=== PATIENT | female | born 1960 | race Caucasian/White ===

== ENCOUNTER 2020-07-08 16:14 | Emergency (ER) | payer MEDICAID, OTHER ==
[~2020-07-08] VITALS: Ht 160 cm; Wt 59.0 kg
[~2020-07-08 16:14] MED LIST: AMIT25TA9 PO; ATEN100T PO; FLUT16SP15 BOTHNSTRLS; OMEP20CA14 PO; PRAV80TA21 PO; SITA1TAB4 PO
[2020-07-08] MEDS ORDERED: ALBUTEROL (0.083%) 2.5MG/3ML NEB HHN STA (17:06)
[2020-07-08] MEDS ORDERED: IPRATROPIUM BROMIDE (0.02%) 0.5MG/2.5ML NEB HHN STA (17:06)
[2020-07-08] MEDS ORDERED: AZITHROMYCIN 500 MG in DEXT 5% WATER 250 ML IV ONE (17:15)
[2020-07-08] MEDS ORDERED: CEFTRIAXONE 1 G PREMIX 50 ML IV ONE (17:15)
[2020-07-08 17:22] LABS: BASOPHILS % 0.5 % (0.0-2.0); EOSINOPHILS % 1.3 % (0.0-5.0); HEMATOCRIT. 37.6 % (36.0-48.0); HEMOGLOBIN. 12.9 g/dL (12.0-16.0); MEAN CORPUSCULAR HEMOGLOBIN 32.1 pg (28.0-32.0); MEAN CORPUSCULAR VOLUME 93.9 fL (81.0-99.0); MEAN PLATELET VOLUME 8.3 fl (7.4-10.4); MONOCYTES % 7.2 % (2.0-8.0); PLATELET 407 x1000/uL (130-400); RED CELL DISTRIBUTION WIDTH 13.6 % (11.6-14.6)
[2020-07-08 17:27] LABS: CHLORIDE 106 mEq/L (98-107)
[2020-07-08 17:32] LABS: D-DIMER 1.1 mg/L FEU (<0.50); PROTHROMBIN TIME 10.8 sec (9.6-11.0)
[2020-07-08 21:30] VITALS: BP 124/70
== END 2020-07-08 23:03 | disposition short-term general hospital (02) ==
LOC: ER 16:14 → CANBEDREQ 07-09 02:19
DX: J18.9 Pneumonia, unspecified organism (principal); R06.00 Dyspnea, unspecified; I10 Essential (primary) hypertension; E11.9 Type 2 diabetes mellitus without complications; Z86.19 Personal history of other infectious and parasitic diseases
CPT/HCPCS: 36415; 71045; 80053; 83605; 83880; 84484; 85025; 85379; 85610; 87040; 93005; 94640; 96365; 96367; 99285; J0456; J0696; J7060; Z7610

== ENCOUNTER 2020-08-18 16:50 | Emergency (ER) | payer MEDICAID, OTHER ==
[~2020-08-18] VITALS: Ht 167.6 cm; Wt 56.0 kg
[2020-08-18] MEDS ORDERED: HYDROCODONE/ACETAMINOPHEN 5/325MG TABLET PO STA (17:12)
[2020-08-18] MEDS ORDERED: ASPIRIN 81MG TABLET PO ONE (17:15)
[2020-08-18] MEDS ORDERED: HYDROCODONE/ACETAMINOPHEN 5/325MG TABLET PO ONE (17:30)
[2020-08-18 18:42] LABS: BASOPHILS % 0.5 % (0.0-2.0); EOSINOPHILS % 1.1 % (0.0-5.0); HEMATOCRIT. 34.3 % (36.0-48.0); HEMOGLOBIN. 11.6 g/dL (12.0-16.0); LYMPHOCYTES % 14.6 % (20.0-50.0); MEAN CORPUSCULAR HEMOGLOBIN 31.1 pg (28.0-32.0); MEAN PLATELET VOLUME 7.6 fl (7.4-10.4); MONOCYTES % 7.9 % (2.0-8.0); NEUTROPHILS % 75.9 % (40.0-76.0); PLATELET 495 x1000/uL (130-400); RED BLOOD CELL COUNT 3.73 mill/uL (4.2-5.4); RED CELL DISTRIBUTION WIDTH 13.1 % (11.6-14.6)
[2020-08-18 18:52] LABS: CHLORIDE 101 mEq/L (98-107)
[2020-08-19 02:25] VITALS: BP 121/70
== END 2020-08-19 02:43 | disposition short-term general hospital (02) ==
LOC: ER 16:50 → CANBEDREQ 08-19 03:47
DX: R07.89 Other chest pain (principal); R91.8 Other nonspecific abnormal finding of lung field; R06.02 Shortness of breath; E11.22 Type 2 diabetes mellitus with diabetic chronic kidney disease; I12.0 Hypertensive chronic kidney disease with stage 5 chronic kidney disease or end stage renal disease; N18.6 End stage renal disease; E78.00 Pure hypercholesterolemia, unspecified; Z86.19 Personal history of other infectious and parasitic diseases; Z94.0 Kidney transplant status
CPT/HCPCS: 36415; 71045; 71260; 80053; 83880; 84484; 85025; 93005; 99285; Q9967; Z7610